=== PATIENT | female | born 1965 | race Two or more races ===

== ENCOUNTER 2016-11-14 06:16 | Emergency (ER) | payer MEDICAID ==
--- NOTE | 2016-11-14 07:25 | EDPHY ---
H & P Stated Complaint: difficulty sleeping, migraine, "burning on back side" of body Time Seen by Provider: 11/14/16 06:44 HPI/ROS: Portions of this note were transcribed by the medical professionals. I, Dr. Heydi Ross, personally performed the history, physical exam, and medical decision- making; and confirmed the accuracy of the information in the transcribed note. CHIEF COMPLAINT: Insomnia, back pain. HISTORY OF PRESENT ILLNESS: The patient is a 51 y/o female complaining of a burning sensation on her upper left back for the last 2 weeks. Her pain radiates into both upper arms but she denies focal weakness or numbness. She complains of associated global weakness and a burning headache (similar to the burning sensation that she experiences in her upper back). Her symptoms worsen when she worries about them. She is occasionally taking Tylenol with mild pain relief. She denies urinary complaints, abdominal pain, fever, vomiting, recent trauma, or recent illness. She also complains of difficulty sleeping for the past 2 months. She suffers from depression and anxiety and her associates her lack of sleep with her discontinuation of medication for 3 months while she was in [facility]. She does not have difficulty sleeping when she is on her Sertraline. She contacted her PCP for refills of her Sertraline yesterday; she did not receive an exam. She has a follow up appointment scheduled in 2 weeks. She denies history of diabetes, cancer, respiratory distress or hypertension. Patient's history somewhat limited due to language barrier, translated majority of interaction, phone credit control administrator offered and declined. Past Medical History: 1. Hypothyroidism 2. Depression - Sertraline Social History: Nonsmoker. Employed. at bedside. From [facility], lives in [place]. Speaks some Romanian but requires translation through family member. PCP : [facility]. REVIEW OF SYSTEMS: A 10 point review of systems was performed and is negative with the exception of the elements mentioned in the history of present illness. * General Appearance: Alert, no acute distress. BP 138/84. Head: Normocephalic atraumatic. Eyes: Pupils equal and round, no conjunctival injection, no discharge. ENT, Mouth: Mucous membranes are moist, no oropharyngeal erythema or edema. Neck: No midline cervical spine tenderness. No lymphadenopathy, supple. No meningeal signs. Respiratory: Lungs are clear to auscultation; no wheezes, rales, or rhonchi. Cardiovascular: Regular rate and rhythm; no murmur, rub, or gallop. Gastrointestinal: Abdomen is soft and non tender, no masses or organomegaly, bowel sounds normal. Skin: Warm and dry, no rashes, normal color. Back: Nontender to palpation over the thoracolumbar spine. No visible rash. Extremities: No lower extremity edema, no calf tenderness or swelling. Neurological: Alert and oriented. Moving all four extremities easily and equally. Cranial nerves II through XII are examined and are intact (visual acuity not tested). Strength is 5 over 5 bilaterally with testing of all major motor groups. Sensation is intact to light touch over all 4 extremities. Deep tendon reflexes are 2+ in the biceps and knees bilaterally. Psychiatric: Normal affect. - Personal History LMP (Females 10-55): Post Menopausal Current Tetanus/Diphtheria Vaccine: Unsure - Medical/Surgical History Hx Asthma: No Hx Chronic Respiratory Disease: No Hx Diabetes: No Hx Cardiac Disease: No Hx Renal Disease: No Hx Cirrhosis: No Hx Alcoholism: No Hx HIV/AIDS: No Hx Splenectomy or Spleen Trauma: No Other PMH: PMHx: hypothyroid, depression. PSHx: denies - Social History Smoking Status: Never smoked Constitutional: Initial Vital Signs Temperature (C) 36.7 C 11/14/16 06:22 Heart Rate 89 11/14/16 06:22 Respiratory Rate 14 11/14/16 06:22 Blood Pressure 138/84 H 11/14/16 06:22 O2 Sat (%) 93 11/14/16 06:22 O2 Delivery Mode Room Air Allergies/Adverse Reactions: No Known Allergies Allergy (Unverified 11/14/16 06:21) Home Medications: Medication Instructions Recorded Levothyroxine 11/14/16 Sertraline HCl 11/14/16 Medical Decision Making ED Course/Re-evaluation: This is a 51 y/o female with a history of depression presenting with a 2-month history of insomnia and a 2-week history of burning back pain. She has not taken her antidepressants within the last 3 months. Exam findings show a non tender C/T/L spine, normal neurologic exam, and normal lung sounds. No signs of shingles. She is afebrile. Her insomnia is likely related to discontinuation of Sertraline and depression. Her back pain seems musculoskeletal in nature. I instructed her to continue taking her antidepressants and counseled her that it might take a while for her to notice a change, try [id number] sleep aids, and to use ibuprofen for pain management. Return precautions given. She understands these instructions and agrees to follow up with her primary care physician at her appointment two weeks from now. She had mild hypertension on the 2 blood pressure readings obtained in the emergency department. She has an appointment with her primary care physician in 2 weeks and her blood pressure will be rechecked at that time. Differential Diagnosis: Back pain including but not limited to muscular pain, herniated disc, shingles, spine fracture, intra-abdominal causes and urinary tract infection. Departure - Departure Disposition: Home, Routine, Self-Care Clinical Impression: Paresthesia Insomnia Qualifiers: Insomnia type: unspecified Qualified Code(s): G47.00 - Insomnia, unspecified Condition: Good Instructions: Insomnia (ED) Additional Instructions: 1. Take 400mg ibuprofen every 8 hours as needed for symptoms for the next week. 2. Take your antidepression medication as prescribed. This can take several weeks to be effective. 3. You can try over the counter sleeping aids. Take as directed on the packaging. 4. Follow up with your primary care provider as scheduled in 2 weeks. 5. Return to the emergency department for worsening of condition. Referrals: [facility] [Other] - As per Instructions Report Scribed for: Heydi Ross Report Scribed by: Judy Neal Date of Report: 11/14/16 Time of Report: 08:15 Physician Review and Approval Statement: 11/15/16 09:15 Portions of this note were transcribed by the medical professionals. I, Dr. Heydi Ross, personally performed the history, physical exam, and medical decision- making; and confirmed the accuracy of the information in the transcribed note.
[2016-11-14 07:35] VITALS: BP 122/78; PULSE 76; RESP 16; TEMP 97.5; O2SAT 98
== END 2016-11-14 07:34 | disposition home or self-care (01) ==
DX: G47.00 Insomnia, unspecified (principal); R20.2 Paresthesia of skin

== ENCOUNTER 2016-11-15 10:11 | Emergency (ER) | payer MEDICAID ==
[2016-11-15 10:15] VITALS: TEMP 98.4; O2SAT 96
[2016-11-15] MEDS ORDERED: LORazepam 2 MG/ML INJ IVP ONE (10:29)
--- NOTE | 2016-11-15 10:50 | EDPHY ---
H & P Stated Complaint: depression can't sleep Time Seen by Provider: 11/15/16 10:47 HPI/ROS: HPI: The this is a 51-year-old female who presents with Chief Complaint: "I can't sleep for 2 months" Location: Quality: Insomnia Duration: 2 months Signs and Symptoms: Denies suicidal ideation, denies homicidal ideation, denies hallucinations, no chest pain, no shortness of breath, no lower leg swelling, no nausea vomiting, no dysuria, no fever, no weight loss, + poor appetite Timing: Daily Severity: Moderate Context: Patient has a history of hypothyroidism, anxiety and depression. Just returned from [facility] 3 days ago. While in [facility] she did not injure any of the festival as per her son patient; she is withdrawn from her family, no longer participates in activities that caused her pleasure before. She had been off of her Zoloft for 2 months but recently restarted yesterday. Seen in this ER yesterday for same complaint. Denies excessive worry/family stressors. Modifying Factors: Tried [id number] sleep aids last night but no relief Comment: ROS: Constitutional: No fever, no chills, no weight loss Eyes: No blurred vision Respiratory: No shortness of breath, no cough Cardiovascular: No chest pain Gastrointestinal: No nausea, no vomiting no diarrhea Genitourinary: No dysuria Extremities: No myalgias Neurologic: No weakness, no numbness Skin: No rashes Hematologic: No bruising, no bleeding MEDICAL/SURGICAL HISTORY: Depression, anxiety, hypothyroidism, chronic low back pain. - Personal History LMP (Females 10-55): Post Menopausal Current Tetanus/Diphtheria Vaccine: Yes Current Tetanus Diphtheria and Acellular Pertussis (TDAP): Yes - Medical/Surgical History Hx Asthma: No Hx Chronic Respiratory Disease: No Hx Diabetes: No Hx Cardiac Disease: No Hx Renal Disease: No Hx Cirrhosis: No Hx Alcoholism: No Hx HIV/AIDS: No Hx Splenectomy or Spleen Trauma: No Other PMH: PMHx: hypothyroid, depression. PSHx: denies - Social History Smoking Status: Never smoked Additional Social History: . Employed. Son at bedside. From [facility] but lives in [place] majority of time. Speaks relatively good Gibraltarian. PCP is [facility]. - Physical Exam Exam: CONSTITUTIONAL: awake and alert, no obvious distress HEENT: Atraumatic and normocephalic, PERRL, EOMI. Tympanic membranes clear. . Oropharynx clear, no exudate and moist pink mucosa. Airway patent. No lymphadenopathy. No meningismus. Cardiovascular: Normal S1/S2, regular rate, regular rhythm, without murmur rub or gallop. PULMONARY/CHEST: Symmetrical and nontender. Clear to auscultation bilaterally Good air movement. No accessory muscle usage. ABDOMEN: Soft, nondistended, nontender, no rebound, no guarding, no peritoneal signs, no masses or organomegaly. No CVAT. EXTREMITIES: 2/2 pulses, no deformities, no clubbing, no cyanosis or edema. NEUROLOGICAL: no focal neuro deficits. GCS 15. PSYCH: Flat affect, good insight and judgment, no flight of ideas SKIN: Warm and dry, no erythema. no rash. Good capillary refill. Constitutional: Initial Vital Signs Temperature (C) 36.9 C 11/15/16 10:13 Heart Rate 94 11/15/16 10:13 Respiratory Rate 16 11/15/16 10:13 Blood Pressure 145/89 H 11/15/16 10:13 O2 Sat (%) 96 11/15/16 10:13 O2 Delivery Mode Room Air Allergies/Adverse Reactions: No Known Allergies Allergy (Unverified 11/14/16 06:21) Home Medications: Medication Instructions Recorded Levothyroxine 11/14/16 Sertraline HCl 11/14/16 hydrOXYzine HCL [Hydroxyzine HCl] 50 mg PO BID PRN #12 tablet 11/15/16 Medical Decision Making ED Course/Re-evaluation: Labs, IV medication and urinalysis ordered No signs of suicidal ideation or homicidal ideation. Recently restarted SSRI. Has good family support and primary care provider. Given IV Ativan 1 mg with adequate relief I also ordered a D-dimer to evaluate for the VTE as recent long distance plane trip; no hypoxia/tachycardia/respiratory distress D-dimer within normal limits. Serum glucose 135; no history of diabetes mellitus; hemoglobin A1c added to the labs Patient family given reassurance. Differential Diagnosis: Differential diagnosis includes but is not limited to major depression that is uncontrolled, anxiety, somatic disorder, thyroid disease, vitamin-D deficiency, infection. - Data Points Laboratory Results: Laboratory Results 11/15/16 10:46 11/15/16 10:46 11/15/16 11/15/16 11/15/16 11:45 10:46 10:46 WBC RBC Hgb Hct MCV MCH MCHC RDW Plt Count MPV Neut % (Auto) Lymph % (Auto) [place] % (Auto) Eos % (Auto) Baso % (Auto) Nucleat RBC Rel Count Absolute Neuts (auto) Absolute Lymphs (auto) Absolute Monos (auto) Absolute Eos (auto) Absolute Basos (auto) Absolute Nucleated RBC Immature Gran % Immature Gran # D-Dimer < 0.27 ug/mLFEU ug/mLFEU (0.00-0.50) Sodium Potassium Chloride Carbon Dioxide Anion Gap BUN Creatinine Estimated GFR Glucose Hemoglobin A1c Pending Estim Average Glucose Pending Calcium Total Bilirubin Conjugated Bilirubin Unconjugated Bilirubin AST ALT Alkaline Phosphatase Total Protein Albumin TSH Free T4 Urine Color COLORLESS Urine Appearance CLEAR Urine pH 5.0 (5.0-7.5) Ur Specific [place] 1.001 L (1.002-1.030) Urine Protein NEGATIVE (NEGATIVE) Urine Ketones NEGATIVE (NEGATIVE) Urine Blood NEGATIVE (NEGATIVE) Urine Nitrate NEGATIVE (NEGATIVE) Urine Bilirubin NEGATIVE (NEGATIVE) Urine Urobilinogen NEGATIVE EU EU (0.2-1.0) Ur Leukocyte Esterase NEGATIVE (NEGATIVE) Urine Glucose NEGATIVE (NEGATIVE) 11/15/16 11/15/16 10:46 10:46 WBC 10.48 10^3/uL H 10^3/uL (3.80-9.50) RBC 4.27 10^6/uL 10^6/uL (4.18-5.33) Hgb 13.1 g/dL g/dL (12.6-16.3) Hct 37.8 % L % (38.0-47.0) MCV 88.5 fL fL (81.5-99.8) MCH 30.7 pg pg (27.9-34.1) MCHC 34.7 g/dL g/dL (32.4-36.7) RDW 12.1 % % (11.5-15.2) Plt Count 276 10^3/uL 10^3/uL (150-400) MPV 10.6 fL fL (8.7-11.7) Neut % (Auto) 72.9 % % (39.3-74.2) Lymph % (Auto) 18.0 % % (15.0-45.0) [place] % (Auto) 7.2 % % (4.5-13.0) Eos % (Auto) 1.2 % % (0.6-7.6) Baso % (Auto) 0.4 % % (0.3-1.7) Nucleat RBC Rel Count 0.0 % % (0.0-0.2) Absolute Neuts (auto) 7.64 10^3/uL H 10^3/uL (1.70-6.50) Absolute Lymphs (auto) 1.89 10^3/uL 10^3/uL (1.00-3.00) Absolute Monos (auto) 0.75 10^3/uL 10^3/uL (0.30-0.80) Absolute Eos (auto) 0.13 10^3/uL 10^3/uL (0.03-0.40) Absolute Basos (auto) 0.04 10^3/uL 10^3/uL (0.02-0.10) Absolute Nucleated RBC 0.00 10^3/uL 10^3/uL (0-0.01) Immature Gran % 0.3 % % (0.0-1.1) Immature Gran # 0.03 10^3/uL 10^3/uL (0.00-0.10) D-Dimer Sodium 138 mEq/L mEq/L (134-144) Potassium 4.0 mEq/L mEq/L (3.5-5.2) Chloride 102 mEq/L mEq/L (97-110) Carbon Dioxide 21 mEq/l L mEq/l (22-31) Anion Gap 15 mEq/L mEq/L (8-16) BUN 6 mg/dL L mg/dL (7-23) Creatinine 0.6 mg/dL mg/dL (0.6-1.0) Estimated GFR > 60 Glucose 135 mg/dL H mg/dL (70-100) Hemoglobin A1c Estim Average Glucose Calcium 9.8 mg/dL mg/dL (8.5-10.4) Total Bilirubin 0.5 mg/dL mg/dL (0.1-1.4) Conjugated Bilirubin 0.3 mg/dL mg/dL (0.0-0.5) Unconjugated Bilirubin 0.2 mg/dL mg/dL (0.0-1.1) AST 32 IU/L IU/L (14-46) ALT 22 IU/L IU/L (9-52) Alkaline Phosphatase 100 IU/L IU/L (38-126) Total Protein 8.4 g/dL H g/dL (6.3-8.2) Albumin 4.5 g/dL g/dL (3.5-5.0) TSH < 0.015 uIU/mL L uIU/mL (0.465-4.680) Free T4 1.67 ng/dL ng/dL (0.59-2.19) Urine Color Urine Appearance Urine pH Ur Specific [place] Urine Protein Urine Ketones Urine Blood Urine Nitrate Urine Bilirubin Urine Urobilinogen Ur Leukocyte Esterase Urine Glucose Medications Given: Discontinued Medications Lorazepam (Ativan Injection) 1 mg IVP EDNOW ONE Stop: 11/15/16 10:30 Last Admin: 11/15/16 11:15 Dose: 1 mg Departure - Departure Disposition: Home, Routine, Self-Care Clinical Impression: Insomnia secondary to depression with anxiety Clinical Impression: (Ruled Out): Depression with anxiety Condition: Good Instructions: Insomnia (ED), Depression (ED), Anxiety (ED) Additional Instructions: Blood sugar was slightly elevated today; follow-up with primary care provider on hemoglobin A1c testing. You may take hydroxyzine twice a day including at bedtime as needed for insomnia /anxiety until you see your primary care provider. Referrals: Han De La Paz MD [Primary Care Provider] - 5-7 days, call for appt. Prescriptions: hydrOXYzine HCL [Hydroxyzine HCl] 50 mg PO BID PRN #12 tablet PRN Reason: Anxiety
[2016-11-15 10:59] LABS: % IMMATURE GRANULYOCYTES 0.3 % (0.0-1.1); ABSOLUTE IMMATURE GRANULOCYTES 0.03 10^3/uL (0.00-0.10); ADD DIFF? NO; ADD MORPH? NO; ADD SCAN? NO; ATYPICAL LYMPHOCYTE FLAG 20 (0-99); FRAGMENT RBC FLAG 0 (0-99); HEMATOCRIT 37.8 % (38.0-47.0); HEMOGLOBIN 13.1 g/dL (12.6-16.3); LEFT SHIFT FLG 10 (0-99); LIPEMIA HEMOLYSIS FLAG 90 (0-99); MEAN CELL HEMOGLOBIN 30.7 pg (27.9-34.1); MEAN CELL HEMOGLOBIN CONCENTR. 34.7 g/dL (32.4-36.7); MEAN CELL VOLUME 88.5 fL (81.5-99.8); MEAN PLATELET VOLUME 10.6 fL (8.7-11.7); PLATELET CLUMPS FLAG 10 (0-99); PLATELET COUNT 276 10^3/uL (150-400); RED BLOOD CELL COUNT 4.27 10^6/uL (4.18-5.33); RED CELL DISTRIBUTION WIDTH 12.1 % (11.5-15.2)
[2016-11-15 11:09] LABS: ALANINE AMINOTRANSFERASE 22 IU/L (9-52); ALBUMIN 4.5 g/dL (3.5-5.0); ALKALINE PHOSPHATASE 100 IU/L (38-126); ANION GAP 15 mEq/L (8-16); ASPARTATE AMINOTRANSFERASE 32 IU/L (14-46); BILIRUBIN,TOTAL 0.5 mg/dL (0.1-1.4); BILIRUBIN-CONJUGATED 0.3 mg/dL (0.0-0.5); BILIRUBIN-UNCONJUGATED 0.2 mg/dL (0.0-1.1); CALCIUM 9.8 mg/dL (8.5-10.4); CARBON DIOXIDE 21 mEq/l (22-31); CHLORIDE 102 mEq/L (97-110); CREATININE 0.6 mg/dL (0.6-1.0); GLOMERULAR FILTRATION RATE > 60; GLUCOSE 135 mg/dL (70-100); SODIUM 138 mEq/L (134-144); TOTAL PROTEIN 8.4 g/dL (6.3-8.2)
[2016-11-15 12:01] LABS: COLOR COLORLESS; LEUKOCYTE ESTERASE,URINE NEGATIVE (NEGATIVE); NITRITE,URINE NEGATIVE (NEGATIVE)
[2016-11-15 13:23] VITALS: BP 137/72; PULSE 76; RESP 18
[2016-11-18 02:49] LABS: HEMOGLOBIN A1C 5.5 % (4.0-6.0)
== END 2016-11-15 13:16 | disposition home or self-care (01) ==
DX: G47.00 Insomnia, unspecified (principal); F41.8 Other specified anxiety disorders
CPT/HCPCS: 96374; J2060

== ENCOUNTER 2016-11-17 15:19 | Emergency (ER) | payer MEDICAID ==
[2016-11-17 15:30] VITALS: BP 125/91; PULSE 84; RESP 16; TEMP 98.2; O2SAT 98
--- NOTE | 2016-11-17 15:36 | EDPHY ---
H & P Stated Complaint: NO SLEEP FOR 2 MONTHS, SLEEPING PILLS NOT WORKING HPI/ROS: CHIEF COMPLAINT: Insomnia, upper back pain HISTORY OF PRESENT ILLNESS: This is the 3rd emergency department visit this week for this 51-year-old [place] female. She has been unable to sleep, is feeling restless, and is unsure what to do. She did take medication last night, hydroxyzine, with no relief of her symptoms. The medication worked the first night, but not the subsequent nights. There is also a burning feeling in her upper back, bilateral,which is keeping her awake. She took ibuprofen for this pain, but had no relief of her symptoms. She states she is feeling depressed and sad at times, but denies suicidal thoughts. The patient [facility] appointment [facility], for her pain and insomnia, but is unsure of the exact day. Denies history of diabetes, cancer, respiratory distress or hypertension. During her last ED visit she had blood work done. Thyroid studies WNL. She had been off of her anti-depressant for months, which is when her insomnia began. She has resumed this medication (a few days ago). History obtained using a [place] public policy mediator. REVIEW OF SYSTEMS: A ten point review of systems was performed and is negative with the exception of the items mentioned in the HPI. Past medical history: Hypothyroidism Depression Social history: From [facility], lives in [place] Lives with children Family at bedside Prior medical records reviewed including ED visit with myself, Dr. Ross on 04/01. General Appearance: Alert. Vital signs reviewed. Blood pressure 125/91. Eyes: Pupils equal and round, no conjunctival injection, no discharge. Anicteric. ENT, Mouth: Mucous membranes are moist, no oropharyngeal erythema or edema. Neck: No lymphadenopathy, supple. Respiratory: Lungs are clear to auscultation; no wheezes, rales, or rhonchi. Cardiovascular: Regular rate and rhythm; no murmur, rub, or gallop. Gastrointestinal: Abdomen is soft and nontender, no masses or organomegaly, bowel sounds normal. Skin: Warm and dry, no rashes on exposed skin, normal color. No vesicular rash. Back: Nontender to palpation over the thoracolumbar spine. No CVAT. No sign of shingles. NO palpable muscle spasm. Extremities: No lower extremity edema, no calf tenderness or swelling. Neurological: Alert and oriented. Moving all four extremities easily and equally. Psychiatric: Normal affect. - Personal History Current Tetanus/Diphtheria Vaccine: Yes Current Tetanus Diphtheria and Acellular Pertussis (TDAP): Yes - Medical/Surgical History Hx Asthma: No Hx Chronic Respiratory Disease: No Hx Diabetes: No Hx Cardiac Disease: No Hx Renal Disease: No Hx Cirrhosis: No Hx Alcoholism: No Hx HIV/AIDS: No Hx Splenectomy or Spleen Trauma: No Other PMH: PMHx: hypothyroid, depression. PSHx: denies - Social History Smoking Status: Never smoked Constitutional: Initial Vital Signs Temperature (C) 36.8 C 11/17/16 15:28 Heart Rate 84 11/17/16 15:28 Respiratory Rate 16 11/17/16 15:28 Blood Pressure 125/91 H 11/17/16 15:28 O2 Sat (%) 98 11/17/16 15:28 Allergies/Adverse Reactions: No Known Allergies Allergy (Unverified 11/14/16 06:21) Home Medications: Medication Instructions Recorded Levothyroxine 11/14/16 Sertraline HCl 11/14/16 hydrOXYzine HCL [Hydroxyzine HCl] 50 mg PO BID PRN #12 tablet 11/15/16 LORazepam [Ativan] 0.5 mg PO HSMR1 #6 tab 11/17/16 Medical Decision Making ED Course/Re-evaluation: This is a 51 y/o female who is arriving for her 3rd ED visit in 4 days. She has a history of depression and presents with a 2-month history of insomnia and a 2- week history of a burning sensation on her back. The medication, hydroxyzine, that she was prescribed during her last visits only helped with her insomnia for one night.She also received ativan at that visit and thinks that it helped. There are no findings of shingles on exam. She has had a normal neurologic exam- -and describes bilateral burning dysesthesia of upper back and neck. She has no history or evidence of diabetes. I continue to think that her insomnia is related to depression and advised her to continue with her anti-depressant. I reviewed the labs that were done at her last visit. Thyroid studies normal. I have not identified an acute medical problem and feel that she can safely be discharged home. She has FU at [facility] this week. She is given RX for small quantity of Ativan to use prn insomnia. Departure - Departure Disposition: Home, Routine, Self-Care Clinical Impression: Anxiety Insomnia Qualifiers: Insomnia type: unspecified Qualified Code(s): G47.00 - Insomnia, unspecified Condition: Good Instructions: Insomnia (ED), Anxiety (ED) Additional Instructions: 1. Take Ativan as prescribed at night for your insomnia. This is not a string top sealer treatment for your sleep problems. 2. Keep your appointment with [facility] Referrals: [facility] [Clinic] - As per Instructions Prescriptions: LORazepam [Ativan] 0.5 mg PO HSMR1 #6 tab Report Scribed for: Heydi Ross Report Scribed by: Glenys Griffith Date of Report: 11/17/16 Time of Report: 16:01 Physician Review and Approval Statement: 11/17/16 15:36 Portions of this note were transcribed by the registered medical assistant. I, Dr. Heydi Ross, personally performed the history, physical exam, and medical decision- making; and confirmed the accuracy of the information in the transcribed note.
== END 2016-11-17 16:08 | disposition home or self-care (01) ==
DX: M54.9 Dorsalgia, unspecified (principal); F51.05 Insomnia due to other mental disorder; F41.9 Anxiety disorder, unspecified

== ENCOUNTER → 2016-12-03 | Outpatient (CLI) | payer MEDICAID | LOC: FIMAGING 11:01 | DX: Z12.31 Encounter for screening mammogram for malignant neoplasm of breast (principal) | CPT/HCPCS: G0202 ==